=== PATIENT | male | born 1995 | race Caucasian/White ===

== ENCOUNTER 2018-06-24 23:49 | Emergency (ER) | payer SELFPAY ==
[2018-06-25 00:14] VITALS: BP 109/50; PULSE 110; TEMP 100; BMI 27.1
--- NOTE | 2018-06-25 00:42 | PDOC ---
Attending Attestation - Resident Resident Name: JanyGabe - ED Attending Attestation I have performed the following: I have examined & evaluated the patient, The case was reviewed & discussed with the resident, I agree w/resident's findings & plan, Exceptions are as noted - HPI HPI: 06/25/18 00:49 this 22 yo male was playing basketball when a teammate ran into his left arm. He continued playing the game but now has pain and swelling to his left shoulder with pain extending to his hand - Physicial Exam PE: 06/25/18 19:54 slender 22 yo male who p/w left shoulder tenderness and mild swelling after being hit in shoulder playing basketball 06/25/18 19:55 head ncat neck supple,no midline cervical tenderness lungs cta b/l cvs [id number] abd soft,nontender ext left shoulder has no obvious deformity,no wrist or elbow tenderness,pain in AC jpoint,initially unable to raise left arm above head due to pain. Good ulnar and radial pulses,cap refill <2 seconds,objectively @+ proprioception is intact - Medical Decision Making 06/25/18 20:03 ct scan does not reveal any fracture or dislocation imp left shoulder sprain splinted,follow up with orthopedics
[2018-06-25] MEDS ORDERED: KETOROLAC TROMETHAMINE 10 MG TABLET PO ONE (01:03)
[2018-06-25] MEDS ORDERED: KETOROLAC TROMETHAMINE 15 MG/ML VIAL IM ONE (01:08)
[2018-06-25] MEDS ORDERED: KETOROLAC TROMETHAMINE 15 MG/ML VIAL ONE (01:09)
--- NOTE | 2018-06-25 01:33 | PDOC ---
History of Present Illness - General Chief Complaint: Pain Stated Complaint: INJURY, LEFT SHOULDER Time Seen by Provider: 06/25/18 00:18 History Source: Patient Exam Limitations: No Limitations - History of Present Illness Initial Comments: 06/25/18 01:09 22 yo male no sig pmh presents to ED after having a shoulder injury while playing basketball at 11 30 pm tonight. Pt states while dribbling the ball another player came up from behind him and hit his left shoulder blade and arm pit. Pt had sudden onset of pain but was able to continue playing. When trying to put on his jacket he noted excessive pain in all planes of shoulder movement and some numbness and weakness in his left hand. Pt able to move arm and hand but is limited due to pain Past History - Past Medical History Allergies/Adverse Reactions: Allergies Allergy/AdvReac Type Severity Reaction Status Date / Time No Known Allergies Allergy Verified 06/25/18 01:08 Home Medications: Ambulatory Orders NK [No Known Home Medication] 06/25/18 COPD: No Other medical history: Pt denies - Suicide/Smoking/Psychosocial Hx Smoking History: Never smoked Have you smoked in the past 12 months: No Information on smoking cessation initiated: No Hx Alcohol Use: No Drug/Substance Use Hx: No Substance Use Type: None Review of Systems - Review of Systems Respiratory: No: Shortness of Breath Cardiac (ROS): No: Chest Pain Musculoskeletal: Yes: Joint Swelling (left shoulder), Muscle Weakness (roll mechanic strength ) Integumentary: No: Change in Color, Erythema Neurological: Yes: Numbness, Paresthesia *Physical Exam - Vital Signs Last Vital Signs Temp Pulse Resp BP Pulse Ox 100 F H 110 H 20 109/50 L 99 06/24/18 23:59 06/24/18 23:59 06/24/18 23:59 06/24/18 23:59 06/24/18 23:59 - Physical Exam General Appearance: Yes: Nourished, Appropriately Dressed. No: Apparent Distress HEENT: positive: EOMI Respiratory/Chest: positive: Lungs Clear, Normal Breath Sounds Cardiovascular: positive: Regular Rhythm, Regular Rate. negative: Edema Comments:: 06/25/18 01:33 equal radial pulses bilaterally Extremity: positive: Normal Capillary Refill, Tender (to palpation left shoulder joint space and scapula), Inflammation (left shoulder joint). negative : Normal Range of Motion (decreased in all planes due to pain), Erythema Integumentary: positive: Normal Color, Dry, Warm Neurologic: positive: Fully Oriented, Alert, Normal Mood/Affect, Normal Response , Motor Strength 5/5, Numbness (left hand when compared to the right) Moderate Sedation - Procedure Monitoring Vital Signs: Procedure Monitoring Vital Signs Temperature 100 F H 06/24/18 23:59 Pulse Rate 110 H 06/24/18 23:59 Respiratory Rate 20 06/24/18 23:59 Blood Pressure 109/50 L 06/24/18 23:59 O2 Sat by Pulse Oximetry (%) 99 06/24/18 23:59 ED Treatment Course - RADIOLOGY Radiology Studies Ordered: Category Date Time Status SHOULDER-LEFT [RAD] Stat Radiology 06/25/18 00:24 Ordered Medical Decision Making - Medical Decision Making 06/25/18 01:44 22 yo male presents to ED after shoulder trauma during basketball game. Pt was had limited ROM with a planes due to pain and weakness with roll mechanic strength in the left hand and numbness which resolved Butcher Supervisor strength now equal bilaterally. Left Shoulder x ray no fractures or dislocations Pt reassessed after pain medications and still unable to abduct past 45 degrees without severe pain. Will do a CT of the shoulder to assess for potential scapular fracture. CT shoulder shows no fracture or dislocation Will DC home with PCP, Ortho follow up, sling for shoulder and ICE. Pt understands plan and is agreeable *DC/Admit/Observation/Transfer Diagnosis at time of Disposition: Shoulder pain, acute Qualifiers: Laterality: left Qualified Code(s): M25.512 - Pain in left shoulder - Discharge Dispostion Disposition: HOME Condition at time of disposition: Stable - Referrals Referrals: Jj Turner [Primary Care Provider] - Sean Ojeda MD [Staff Physician] - - Patient Instructions Printed Discharge Instructions: DI for Acute Pain -- Adult, DI for Shoulder Pain Additional Instructions: Please make appointment with your Primary Care Doctor and Orthopedic Surgeon referred to you within the next 24-48 hours. Continue taking over the counter Motrin and Tylenol for continued pain as needed. Return to the emergency room for new or concerning symptoms including but not limited to: weakness or sensory changes in the left arm or hand, severe pain not improved by medication, inability to move the arm due to severe pain. Rest, Ice and keep the left arm in a sling as needed for comfort. Thank you - Post Discharge Activity
== END 2018-06-25 02:59 | disposition home or self-care (01) ==
LOC: JER 23:49
PROC: 3E0233Z Introduction of Anti-inflammatory into Muscle, Percutaneous Approach (ICD-10-PCS; principal; 2018-06-24)
DX: M25.512 Pain in left shoulder (principal)
CPT/HCPCS: 73030-TC-LT-FY; 73200-TC-RT; 99282-25